=== PATIENT | female | born 1960 | race Caucasian/White ===

== ENCOUNTER 2017-04-13 13:04 | Emergency (ER) | payer OTHER ==
[2017-04-13 13:25] VITALS: BP 131/72
[2017-04-13 16:31] LABS: Hematocrit 41 % (35-47); Hemoglobin 13.5 g/dl (12.0-16.0); Mean Corpuscular HGB Conc 33 g/dl (31-36); Mean Corpuscular Hemoglobin 30 pg (27-31); Mean Corpuscular Volume 90 fL (80-97); Mean Platelet Volume 8 um3 (7.4-10.4); Red Cell Distribution Width 14 % (10.5-15); White Blood Count 6.5 10^3/ul (3.5-10.8)
[2017-04-13 16:41] LABS: Albumin 4.3 g/dL (3.2-5.2); BUN/Creatinine Ratio 23.5 (8-20); Calcium 9.6 mg/dL (8.6-10.3); EGFR African American 93.4 (>60); EGFR Non-African American 72.6 (>60); Globulin 2.6 g/dL (2-4); Total Bilirubin 0.3 mg/dL (0.2-1.0); Total Protein 6.9 g/dL (6.4-8.9)
--- NOTE | 2017-04-13 16:54 | ED ---
Erick Claudio Alok, scribed for Becca Marrero MD on 04/13/17 at 1417 . GI/ HPI - HPI Summary HPI Summary: 57F presents to the ED with rectal bleeding since last night. Pt states that she woke up with blood in her underwear and that the blood grew progressively heavier following BMs. The blood is described as bright red. Pt also notes a hemorrhoid but is unsure if that is where the blood is coming from. Pt denies blood in stool. Pt denies abd pain. Pt has had a colonoscopy in the past and denies h/o diverticuli. Pt denies tobacco/drugs and drinks ETOH rarely. - History of Current Complaint Chief Complaint: EDGIBleed Time Seen by Provider: 04/13/17 13:41 Stated Complaint: RECTAL BLEEDING Hx Obtained From: Patient Onset/Duration: Started Hours Ago, Atraumatic, Still Present Timing: Constant Severity: Moderate Current Severity: Moderate Pain Intensity: 0 Associated Signs and Symptoms: Positive: External Hemorrhoid. Negative: Blood w /Stool, Abdominal Pain Aggravating Factor(s): Bowel Movement Alleviating Factor(s): Nothing - Allergy/Home Medications Allergies/Adverse Reactions: Allergies Allergy/AdvReac Type Severity Reaction Status Date / Time Amoxicillin Allergy Severe Rash Verified 04/13/17 13:25 PMH/Surg Hx/FS Hx/Imm Hx GI History: Denies: Hx Diverticulosis Infectious Disease History: No Infectious Disease History: Denies: Traveled Outside the [place] in Last 30 Days - Family History Known Family History: Negative: Hypertension - Social History Occupation: Employed Full-time Lives: With Family Alcohol Use: Weekly Alcohol Amount: 1 to 2 glasses wine Hx Substance Use: No Substance Use Type: Reports: None Hx Tobacco Use: No Smoking Status (MU): Never Smoked Tobacco Review of Systems Negative: Fever Positive: Other - No blood in stool. Rectal bleeding. Hemorrhoid. Negative: Abdominal Pain All Other Systems Reviewed And Are Negative: Yes Physical Exam Triage Information Reviewed: Yes Vital Signs On Initial Exam: Initial Vitals Temp Pulse Resp BP Pulse Ox 98.1 F 71 15 131/72 100 04/13/17 13:18 04/13/17 13:18 04/13/17 13:18 04/13/17 13:18 04/13/17 13:18 Vital Signs Reviewed: Yes Appearance: Positive: Well-Appearing, No Pain Distress Skin: Positive: Warm, Skin Color Reflects Adequate Perfusion, Dry Eyes: Positive: EOMI, KATHRYN ENT: Positive: Pharynx normal, TMs normal Neck: Positive: Supple, Nontender Respiratory/Lung Sounds: Positive: Clear to Auscultation, Breath Sounds Present. Negative: Rales, Rhonchi, Wheezes Cardiovascular: Positive: RRR, Other - No gallop. Negative: Murmur, Rub Abdomen Description: Positive: Nontender, Soft, Other: - No rebound. Negative: Distended, Guarding Bowel Sounds: Positive: Present Musculoskeletal: Positive: Strength/ROM Intact, Other - Rectal Exam: Blood in rectal vault. Negative: Edema Left, Edema Right Neurological: Positive: Sensory/Motor Intact, Alert, Oriented to Person Place, Time, CN Intact II-III Psychiatric: Positive: Affect/Mood Appropriate Diagnostics - Vital Signs Vital Signs Temp Pulse Resp BP Pulse Ox 04/13/17 13:18 98.1 F 69 15 131/72 100 - Laboratory Lab Results: Lab Results 04/13/17 04/13/17 04/13/17 Range/Units 15:23 15:23 15:23 WBC 6.5 (3.5-10.8) 10^3/ul RBC 4.50 (4.0-5.4) 10^6/ul Hgb 13.5 (12.0-16.0) g/dl Hct 41 (35-47) % MCV 90 (80-97) fL MCH 30 (27-31) pg MCHC 33 (31-36) g/dl RDW 14 (10.5-15) % Plt Count 233 (150-450) 10^3/ul MPV 8 (7.4-10.4) um3 Neut % (Auto) 65.4 (38-83) % Lymph % (Auto) 26.7 (25-47) % [place] % (Auto) 5.9 (1-9) % Eos % (Auto) 1.3 (0-6) % Baso % (Auto) 0.7 (0-2) % Absolute Neuts (auto) 4.2 (1.5-7.7) 10^3/ul Absolute Lymphs (auto) 1.7 (1.0-4.8) 10^3/ul Absolute Monos (auto) 0.4 (0-0.8) 10^3/ul Absolute Eos (auto) 0.1 (0-0.6) 10^3/ul Absolute Basos (auto) 0 (0-0.2) 10^3/ul Absolute Nucleated RBC 0.01 10^3/ul Nucleated RBC % 0.1 INR (Anticoag Therapy) 0.88 L (0.89-1.11) APTT 34.7 (26.0-36.3) seconds Sodium 136 (133-145) mmol/L Potassium 4.0 (3.5-5.0) mmol/L Chloride 104 (101-111) mmol/L Carbon Dioxide 26 (22-32) mmol/L Anion Gap 6 (2-11) mmol/L BUN 19 (6-24) mg/dL Creatinine 0.81 (0.51-0.95) mg/dL Est GFR ( Amer) 93.4 (>60) Est GFR (Non-Af Amer) 72.6 (>60) BUN/Creatinine Ratio 23.5 H (8-20) Glucose 88 (70-100) mg/dL Calcium 9.6 (8.6-10.3) mg/dL Total Bilirubin 0.30 (0.2-1.0) mg/dL AST 19 (13-39) U/L ALT 16 (7-52) U/L Alkaline Phosphatase 64 (34-104) U/L Total Protein 6.9 (6.4-8.9) g/dL Albumin 4.3 (3.2-5.2) g/dL Globulin 2.6 (2-4) g/dL Albumin/Globulin Ratio 1.7 (1-3) Result Diagrams: 04/13/17 15:23 04/13/17 15:23 Lab Statement: Any lab studies that have been ordered have been reviewed, and results considered in the medical decision making process. GIGU Course/Dx - Course Course Of Treatment: 57 yo female painless scant bleeding from rectum with hemorrhoid will do f/u with GI - Diagnoses Provider Diagnoses: Hemorrhoid, GI bleed - Physician Notifications Discussed Care Of Patient With: Esequiel Cortes - Recommend FU as OP Time Discussed With Above Provider: 14:56 Discharge - Discharge Plan Condition: Stable Disposition: HOME Patient Education Materials: Gastrointestinal Bleeding (ED), Hemorrhoids (ED) Referrals: Esequiel Cortes MD [Medical Doctor] - No Primary Care Phys,NOPCP [Primary Care Provider] - Additional Instructions: Please follow up with Dr. Cortes The documentation as recorded by the Erick parker Alok accurately reflects the service I personally performed and the decisions made by me, Becca Marrero MD.
== END 2017-04-13 17:40 | disposition home or self-care (01) ==
LOC: ED 13:04
DX: K92.2 Gastrointestinal hemorrhage, unspecified (principal); K64.9 Unspecified hemorrhoids
CPT/HCPCS: 36415; 80053; 85025; 85610; 85730; 99282

== ENCOUNTER 2018-10-30 08:09 | Emergency (ER) | payer BC, OTHER ==
--- NOTE | 2018-10-30 08:27 | ED ---
Lower Extremity - HPI Summary HPI Summary: Patient is a 58-year-old female who presents emergency department for a left ankle and foot injury that occurred yesterday at work. 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 Patient states she is only able to ambulate a few steps with significant pain. Denies any injuries from fall. Symptoms are mild in severity. Associated symptoms of bruising and swelling to foot. Walking makes symptoms worse. Rest makes symptoms better. - History of Current Complaint Chief Complaint: EDExtremityLower Stated Complaint: FELL AND HURT LT FOOT Time Seen by Provider: 10/30/18 08:17 Hx Obtained From: Patient Pain Intensity: 3 - Allergies/Home Medications Allergies/Adverse Reactions: Allergies Allergy/AdvReac Type Severity Reaction Status Date / Time amoxicillin Allergy Rash Verified 10/30/18 08:20 Home Medications: Home Medications Albuterol inh POWDER (NF) [Proair Respiclick] 2 puff INH Q4H PRN 10/30/18 [ History Confirmed 10/30/18] Benzonatate CAP* [Tessalon 100 MG CAP*] 100 mg PO TID PRN 10/30/18 [History Confirmed 10/30/18] Cabergoline 0.5 mg PO SEE INSTRUCTIONS 10/30/18 [History Confirmed 10/30/18] Doxycycline Hyclate 100 mg PO BID 10/30/18 [History Confirmed 10/30/18] FLUoxetine CAP* [Prozac CAP*] 20 mg PO DAILY 10/30/18 [History Confirmed ] Levothyroxine TAB* [Synthroid 25 MCG TAB*] 25 mcg PO QAM 10/30/18 [History Confirmed 10/30/18] buPROPion HCl [Bupropion Xl] 150 mg PO DAILY 10/30/18 [History Confirmed ] predniSONE TAB* [Deltasone 20 MG TAB*] 40 mg PO DAILY 10/30/18 [History Confirmed 10/30/18] PMH/Surg Hx/FS Hx/Imm Hx Previously Healthy: Yes GI History: Denies: Hx Diverticulosis Infectious Disease History: No Infectious Disease History: Denies: Traveled Outside the [place] in Last 30 Days - Family History Known Family History: Positive: Non-Contributory Negative: Hypertension - Social History Occupation: Employed Full-time Lives: With Family Alcohol Use: Weekly Alcohol Amount: 1 to 2 glasses wine Hx Substance Use: No Substance Use Type: Reports: None Hx Tobacco Use: No Smoking Status (MU): Never Smoked Tobacco Review of Systems Positive: Other - Left foot pain Negative: Weakness, Paresthesia, Numbness All Other Systems Reviewed And Are Negative: Yes Physical Exam Triage Information Reviewed: Yes Vital Signs On Initial Exam: Initial Vitals Temp Pulse Resp BP Pulse Ox 97.7 F 77 16 131/80 94 10/30/18 08:12 10/30/18 08:12 10/30/18 08:12 10/30/18 08:12 10/30/18 08:12 Vital Signs Reviewed: Yes Appearance: Positive: Well-Appearing - Pt. sitting on bed in NAD. present. Skin: Positive: Warm, Dry Head/Face: Positive: Normal Head/Face Inspection Eyes: Positive: Normal, EOMI Neck: Positive: Supple Musculoskeletal: Positive: Other - Large area of ecchymosis noted over the proximal dorsal aspect of foot with pain palpation. Mild pain over lateral malleolus. Good pedal pulse. No breaks in the skin. Acchilles tendon intact. No pain over the base of the 5th metatarsal. No proximal tib/fib or knee pain. Neurological: Positive: Normal, CN Intact II-III Psychiatric: Positive: Affect/Mood Appropriate Procedures - Splinting Left Lower Extremity Pre-Made Type: rudy wrap and post op Pre-Proc Neuro Vasc Exam: normal Post-Proc Neuro Vasc Exam: normal Diagnostics - Vital Signs Vital Signs Temp Pulse Resp BP Pulse Ox 10/30/18 08:12 97.7 F 77 16 131/80 94 - Laboratory Lab Statement: Any lab studies that have been ordered have been reviewed, and results considered in the medical decision making process. Lower Extremity Course/Dx - Course Course Of Treatment: Pt. presenting for isolated left foot and ankle injury. Xrays yennifer negative for acute changes. Results discussed. Pt. denies crutches. Rudy wrap and post op shoe placed for comfort. Advised ice and elevation. Activity as tolerated. NSAIDS for pain as directed. To f.u with orthopedics if pain persist. Pt. understands and agrees with plan. - Diagnoses Differential Diagnosis/HQI/PQRI: Positive: Contusion, Dislocation, Fracture ( Closed), Sprain, Strain Provider Diagnoses: Foot sprain Discharge - Sign-Out/Discharge Documenting (check all that apply): Patient Departure - Discharge Plan Condition: Good Disposition: HOME Patient Education Materials: Foot Sprain (ED) Referrals: Macario Iverson MD [Medical Doctor] - Additional Instructions: Schedule a follow up appointment with orthopedics if pain persist Wear splint and use crutches Advance to weight bearing as tolerated Ice and elevate Ibuprofen for pain as directed Return to ER if symptoms change or worsen - Billing Disposition and Condition Condition: GOOD Disposition: Home
[2018-10-30 09:42] VITALS: BP 147/95
== END 2018-10-30 09:42 | disposition home or self-care (01) ==
LOC: ED 08:09
DX: S93.602A Unspecified sprain of left foot, initial encounter (principal); W10.9XXA Fall (on) (from) unspecified stairs and steps, initial encounter; Y92.89 Other specified places as the place of occurrence of the external cause
CPT/HCPCS: 99282